=== PATIENT | female | born 1950 | race Two or more races ===

== ENCOUNTER 2023-10-06 01:51 | Emergency (ER) | payer OTHER ==
[~2023-10-06] VITALS: Ht 157.5 cm; Wt 86.2 kg
[2023-10-06] MEDS ORDERED: LOSARTAN POTAS100 MG (01:59)
[2023-10-06] MEDS ORDERED: HUMALOG100 UNIT/2 (01:59)
[2023-10-06] MEDS ORDERED: JARDIANCE10 MG (01:59)
[2023-10-06] MEDS ORDERED: ATORVASTATIN CA20 MG (02:00)
[2023-10-06] MEDS ORDERED: SYNTHROID50 MCG (02:00)
[2023-10-06] MEDS ORDERED: DICLOFENAC POTA50 MG PO (03:15)
== END 2023-10-06 03:17 | disposition home or self-care (01) ==
LOC: ER 01:52
DX: S67.10XA Crushing injury of unspecified finger(s), initial encounter (principal); W23.0XXA Caught, crushed, jammed, or pinched between moving objects, initial encounter; Y93.89 Activity, other specified; Y92.810 Car as the place of occurrence of the external cause; Y99.9 Unspecified external cause status; Z91.013 Allergy to seafood

== ENCOUNTER 2024-04-26 19:43 | Emergency (ER) | payer OTHER ==
[~2024-04-26] VITALS: Ht 157.5 cm; Wt 86.2 kg
[~2024-04-26 19:43] MED LIST: ATORVASTATIN CA20 MG; DICLOFENAC POTA50 MG PO; HUMALOG100 UNIT/2; JARDIANCE10 MG; LOSARTAN POTAS100 MG; SYNTHROID50 MCG
[2024-04-26 20:39] LABS: HEMATOCRIT 38.4 % (36.0-45.00); HEMOGLOBIN 13.2 g/dL (12.0-15.00); MEAN CELL VOLUME 93.3 fL (80.00-100.00); MEAN CORPUSCULAR HEMOGLOBIN 32.2 pg (27.00-32.0); MEAN CORPUSCULAR HGB CONC 34.5 g/dl (32.0-36.0); PLATELET COUNT 210 K/uL (150-450); RED BLOOD COUNT 4.11 M/uL (4.00-6.00); RED CELL DISTRIBUTION WIDTH 13.4 % (11.5-14.5)
[2024-04-26 21:02] LABS: CALCIUM 8.8 mg/dL (8.5-10.1); CREATININE SERUM 0.79 mg/dL (0.55-1.02); GFR 71.54; POTASSIUM 3.72 mEq/L (3.5-5.1)
[2024-04-26 21:17] LABS: PH,URINE 5.5 (5.0-8.0); URINE APPEARANCE Clear; URINE BILIRRUBIN Negative (NEGATIVE); URINE BLOOD Negative; URINE COLOR Yellow; URINE LEUKOCYTE Negative; URINE NITRATE Negative; URINE PROTEIN Negative (NEGATIVE); URINE UROBILINOGEN 0.2 E.U./dl
[2024-04-26 21:20] LABS: URINE BACTERIA 377.8 uL (0.0-1933); URINE EPITHELIAL CELLS 4.4 uL (0.0-38.8); URINE RBC 5.1 uL (0.0-20.8); URINE WBC 12.1 uL (0.0-23.2)
[2024-04-26 21:25] LABS: URINE GLUCOSE >=1000 MG/DL (NEGATIVE)
== END 2024-04-26 21:58 | disposition home or self-care (01) ==
LOC: ER 19:44
PROVIDERS: General Practice
DX: R30.0 Dysuria (principal)